=== PATIENT | male | born 1990 | race Caucasian/White ===

== ENCOUNTER 2023-10-04 17:13 | Emergency (ER) | payer SELFPAY ==
[~2023-10-04] VITALS: Ht 175.3 cm; Wt 75.0 kg
[2023-10-04] MEDS ORDERED: PROPOFOL 200MG/20ML VIAL IV ONE (17:30)
[2023-10-04] MEDS ORDERED: FENTANYL CITRATE/PF 50MCG/ML 2ML VIAL IV NR (17:30)
[2023-10-04] MEDS ORDERED: ONDANSETRON HCL 4MG/2ML INJ IV NR ×2 (17:30)
[2023-10-04] MEDS ORDERED: ONDANSETRON HCL 4MG/2ML INJ IV ONE ×2 (17:30)
[2023-10-04] MEDS ORDERED: FENTANYL CITRATE/PF 50MCG/ML 2ML VIAL IV ONE ×2 (17:30→21:15)
[2023-10-04 20:50] VITALS: O2SAT 100
[2023-10-04] MEDS ORDERED: HYDR-4001 MT (21:53)
[2023-10-04] MEDS ORDERED: HYDROCODONE/ACETAMINOPHEN 5/325MG TABLET PO PRN (22:00)
[2023-10-04 23:23] VITALS: BP 128/80; PULSE 75; RESP 18; TEMP 98.2
== END 2023-10-04 23:24 | disposition home or self-care (01) ==
LOC: ER 17:13
DX: S52.501A Unspecified fracture of the lower end of right radius, initial encounter for closed fracture (principal); S93.401A Sprain of unspecified ligament of right ankle, initial encounter; W11.XXXA Fall on and from ladder, initial encounter; Y93.89 Activity, other specified; Y92.89 Other specified places as the place of occurrence of the external cause; Y99.8 Other external cause status
CPT/HCPCS: 73100; 73110; 73610; 25605; 96374; 96375; 96376; 99152; 99285; J3010; J2405; J2704; Z7610 ×2